=== PATIENT | female | born 1965 | race African-American/Black ===

== ENCOUNTER 2016-05-19 17:45 | Emergency (ER) | payer OTHER ==
[2016-05-19 18:02] VITALS: BP 132/79; PULSE 103; TEMP 98.6; BMI 34.1
[2016-05-19] MEDS ORDERED: ALBUTEROL SO4 2.5/IPRATROPIUM 0.5 INH SOL 3 ML VIAL.NEB. NEB ONE ×2 (19:16→19:17)
[2016-05-19] MEDS ORDERED: ALBUTEROL SO4 0.083% IH SOL 2.5 MG/3 ML VIAL.NEB. NEB ONE ×2 (20:22→20:38)
--- NOTE | 2016-05-19 22:06 | PDOC ---
History of Present Illness - General Chief Complaint: Asthma Stated Complaint: SHORTNESS OF BREATH Time Seen by Provider: 05/19/16 18:35 History Source: Patient Exam Limitations: No Limitations - History of Present Illness Initial Comments: 05/19/16 22:03 chest tightness and wheezing x 3 days; no fever/ chills Timing/Duration: reports: just prior to arrival Severity: reports: mild Possible Cause: Yes: no prior episodes Past History - Past Medical History Allergies/Adverse Reactions: Allergies Allergy/AdvReac Type Severity Reaction Status Date / Time No Known Allergies Allergy Verified 05/19/16 18:02 Home Medications: Ambulatory Orders Amlodipine Besylate [Norvasc -] 1 each PO DAILY 05/28/12 Albuterol Sulfate Inhaler - [Ventolin HFA Inhaler -] 2 inh PO QID 02/04/15 Liraglutide [Victoza -] 1.2 mg SQ DAILY@0700 02/04/15 Loratadine [Claritin -] 10 mg PO DAILY 02/04/15 Metformin HCl 500 mg PO BID 02/04/15 Mometasone Furoate [Asmanex 220Mcg -] 1 inh IH HS 02/04/15 Montelukast Na [Singulair -] 10 mg PO DAILY 02/04/15 Omeprazole Magnesium [Prilosec (OTC)] 20 mg PO DAILY 02/04/15 Oxycodone HCl 15 mg PO DAILY 02/04/15 Oxycodone HCl [Oxycontin] 10 mg PO DAILY 02/04/15 Ranitidine [Zantac -] 150 mg PO HS 02/04/15 Repaglinide [Prandin -] 2 mg PO TID 02/04/15 Telmisartan/Hydrochlorothiazid [Micardis Hct 80-25 mg Tablet] 1 each PO DAILY Zolpidem Tartrate [Ambien] 10 mg PO HS 02/04/15 Ibuprofen [Motrin -] 800 mg PO Q6H #30 tablet 08/18/15 Asthma: Yes Diabetes: Yes (TYPE 2) GI Disorders: Yes (GERD) HTN: Yes Hypercholesterolemia: Yes Liver Disease: Yes (FATTY LIVER) - Immunization History Immunization Up to Date: Yes - Psycho/Social/Smoking Cessation Hx Anxiety: No Suicidal Ideation: No Smoking Status: No Smoking History: Never smoked Have you smoked in the past 12 months: No Number of Cigarettes Smoked Daily: 0 Hx Alcohol Use: No Drug/Substance Use Hx: No Substance Use Type: None Review of Systems - Review of Systems Constitutional: No: Chills, Fever, Malaise HEENTM: Yes: Nose Congestion Respiratory: Yes: Cough, Wheezing. No: SOB with Exertion, Stridor Cardiac (ROS): Yes: Chest Tightness. No: Symptoms Reported, Chest Pain ABD/GI: No: Symptoms Reported *Physical Exam - Vital Signs Last Vital Signs Temp Pulse Resp BP Pulse Ox 98.6 F 103 H 20 132/79 100 05/19/16 17:59 05/19/16 17:59 05/19/16 17:59 05/19/16 17:59 05/19/16 17:59 - Physical Exam General Appearance: Yes: Appropriately Dressed. No: Apparent Distress HEENT: positive: TMs Normal, Pharynx Normal Neck: positive: Supple. negative: Tender, Rigid, Lymphadenopathy (R), Lymphadenopathy (L) Respiratory/Chest: positive: Wheezing. negative: Respiratory Distress, Accessory Muscle Use Cardiovascular: positive: Regular Rhythm, Regular Rate. negative: Murmur ED Treatment Course - ADDITIONAL ORDERS Additional order review: Laboratory Results 05/19/16 19:48 POC Glucometer [id number] 05/19/16 19:48 POC Glucometer [id number] - RADIOLOGY Radiology Studies Ordered: Category Date Time Status CHEST PA & LAT [RAD] Stat Radiology 05/19/16 20:23 Completed - Medications Given in the ED: ED Medications Discontinued Medications Generic Name Dose Route Start Last Admin Trade Name Freq PRN Reason Stop Dose Admin Albuterol Sulfate 1 amp 05/19/16 20:22 05/19/16 20:39 Ventolin 0.083% Nebulizer Soln - NEB 05/19/16 20:23 1 amp ONCE ONE Administration Albuterol/Ipratropium 1 amp 05/19/16 19:16 05/19/16 19:18 Duoneb - NEB 05/19/16 19:17 1 amp ONCE ONE Administration Medical Decision Making - Medical Decision Making 05/19/16 22:04 feeling much better post 2 albuterols; ekg notes sinus tack; reviewed with ED attn *DC/Admit/Observation/Transfer Diagnosis at time of Disposition: Exacerbation of asthma - Discharge Dispostion Disposition: HOME Condition at time of disposition: Stable Admit: No - Post Discharge Activity Work/School Note: Back to Work
[2016-05-19] MEDS ORDERED: predniSONE 20 MG TABLET (UD) ONE (22:11)
--- NOTE | 2016-05-20 12:23 | EKG ---
Test Reason : Blood Pressure : / mmHG Vent. Rate : 101 BPM Atrial Rate : 101 BPM P-R Int : 134 ms QRS Dur : 088 ms QT Int : 356 ms P-R-T Axes : 045 009 080 degrees QTc Int : 461 ms SINUS TACHYCARDIA WITH OCCASIONAL PREMATURE VENTRICULAR COMPLEXES NONSPECIFIC T WAVE ABNORMALITY ABNORMAL ECG Confirmed by ANTONIO TRISTAN, KENDRICK ([id number]) on 05/20/2016 12:23:34 PM Referred By: DEVIN Confirmed By:KENDRICK ALVAREZ MD
== END 2016-05-19 22:10 | disposition home or self-care (01) ==
LOC: JERFT 17:45
PROC: 3E0F7GC Introduction of Other Therapeutic Substance into Respiratory Tract, Via Natural or Artificial Opening (ICD-10-PCS; principal; 2016-05-19)
DX: J45.901 Unspecified asthma with (acute) exacerbation (principal); D64.9 Anemia, unspecified; E11.9 Type 2 diabetes mellitus without complications; K21.9 Gastro-esophageal reflux disease without esophagitis; I10 Essential (primary) hypertension; E78.00 Pure hypercholesterolemia, unspecified
CPT/HCPCS: 71020-TC; 93005; 93010; 94640; 99281-25

== ENCOUNTER 2018-11-27 13:32 | Emergency (ER) | payer OTHER ==
--- NOTE | 2018-11-27 13:35 | PDOC ---
Rapid Medical Evaluation Time Seen by Provider: 11/27/18 13:34 Medical Evaluation: Allergies Allergy/AdvReac Type Severity Reaction Status Date / Time No Known Allergies Allergy Verified 11/27/18 13:34 11/27/18 13:34 I have performed a brief in-person evaluation of this patient. The patient presents with a chief complaint of: left foot pain s/p accidental kick of [place] pallet Pertinent physical exam findings: No focal findings I have ordered the following: xray, ice The patient will proceed to the ED for further evaluation. Discharge Disposition - Diagnosis Foot pain, left - Referrals - Patient Instructions - Post Discharge Activity
[2018-11-27 13:37] VITALS: BP 148/74; PULSE 88; TEMP 98.4; BMI 35.2
--- NOTE | 2018-11-27 14:34 | PDOC ---
History of Present Illness - General Chief Complaint: Bone Injury Stated Complaint: LT FOOT PAIN Time Seen by Provider: 11/27/18 13:34 - History of Present Illness Initial Comments: 11/27/18 14:31 53-year-old female presents for evaluation of left fifth toe pain after hitting her toe into a pallet at a supermarket last night Past History - Past Medical History Allergies/Adverse Reactions: Allergies Allergy/AdvReac Type Severity Reaction Status Date / Time No Known Allergies Allergy Verified 11/27/18 13:34 Home Medications: Ambulatory Orders Albuterol Sulfate Inhaler - [Ventolin HFA Inhaler -] 2 inh PO QID 02/04/15 Loratadine [Claritin -] 10 mg PO DAILY 02/04/15 Mometasone Furoate [Asmanex 220Mcg -] 1 inh IH HS 02/04/15 Montelukast Na [Singulair -] 10 mg PO DAILY 02/04/15 Zolpidem Tartrate [Ambien] 10 mg PO HS 02/04/15 Metaxalone [Skelaxin] 800 mg PO DAILY 08/14/17 Aspirin Coated [Ecotrin -] 81 mg PO DAILY tablet.ec 08/19/17 Atorvastatin Ca [Lipitor] 80 mg PO HS tablet 08/19/17 Carvedilol [Coreg -] 6.25 mg PO BID tablet 08/19/17 Heparin - 5,000 unit SQ TID vial 08/19/17 Insulin Sliding Scale [Novolog Vial Sliding Scale -] 1 vial SQ ACHS units 08/19 Insulin Sliding Scale [Novolog Vial Sliding Scale -] 1 vial SQ ACHS units 08/19 Spironolactone [Aldactone -] 25 mg PO DAILY tablet 08/19/17 Valsartan [Diovan] 320 mg PO DAILY tablet 08/19/17 Asthma: Yes COPD: No Diabetes: Yes (TYPE 2) GI Disorders: Yes (GERD) HTN: Yes Hypercholesterolemia: Yes Liver Disease: Yes (FATTY LIVER) - Immunization History Immunization Up to Date: Yes - Suicide/Smoking/Psychosocial Hx Smoking Status: No Smoking History: Never smoked Have you smoked in the past 12 months: No Number of Cigarettes Smoked Daily: 0 Hx Alcohol Use: No Drug/Substance Use Hx: No Substance Use Type: None Review of Systems - Review of Systems Musculoskeletal: Yes: Joint Pain *Physical Exam - Vital Signs Last Vital Signs Temp Pulse Resp BP Pulse Ox 98.4 F 88 18 148/74 100 11/27/18 13:35 11/27/18 13:35 11/27/18 13:35 11/27/18 13:35 11/27/18 13:35 - Physical Exam Comments: 11/27/18 14:31 Left fifth toe skin color and temperature are normal range of motion is slightly limited no gross sensory motor deficits mild swelling at the tip of the toe. Neurovascularly intact. Medical Decision Making - Medical Decision Making 11/27/18 14:32 No displaced fracture left fifth toe weight-bear as tolerated with [place] shoe follow-up with orthopedics *DC/Admit/Observation/Transfer Diagnosis at time of Disposition: Foot pain, left, Contusion of toe of left foot - Discharge Dispostion Disposition: HOME Condition at time of disposition: Stable Decision to Admit order: No - Referrals Referrals: Lizz Billingsley MD [Primary Care Provider] - Jeremiah Perez MD [Staff Physician] - - Patient Instructions Printed Discharge Instructions: DI for Toe Sprain Additional Instructions: He may weight-bear as tolerated with [place] shoe follow-up with orthopedics in 1-2 days without fail for further evaluation and treatment options and return to the emergency room should symptoms worsen - Post Discharge Activity
== END 2018-11-27 14:42 | disposition home or self-care (01) ==
LOC: JERFT 13:32
DX: M79.675 Pain in left toe(s) (principal); S90.122A Contusion of left lesser toe(s) without damage to nail, initial encounter; W22.8XXA Striking against or struck by other objects, initial encounter; Y93.89 Activity, other specified; Y92.512 Supermarket, store or market as the place of occurrence of the external cause; K21.9 Gastro-esophageal reflux disease without esophagitis; K76.0 Fatty (change of) liver, not elsewhere classified; E78.00 Pure hypercholesterolemia, unspecified; I10 Essential (primary) hypertension; E11.9 Type 2 diabetes mellitus without complications; J45.909 Unspecified asthma, uncomplicated
CPT/HCPCS: 73630-TC-LT; 99282-25

== ENCOUNTER 2018-12-23 18:56 | Emergency (ER) | payer OTHER ==
[2018-12-23 19:35] VITALS: BP 153/85; PULSE 97; TEMP 98.5; BMI 35.4
[2018-12-23] MEDS ORDERED: ALBUTEROL SO4 2.5/IPRATROPIUM 0.5 INH SOL 3 ML VIAL.NEB. NEB ONE ×2 (19:59→20:29)
[2018-12-23] MEDS ORDERED: predniSONE 20 MG TABLET (UD) PO ONE (20:05)
[2018-12-23] MEDS ORDERED: predniSONE 20 MG TABLET (UD) ONE (20:09)
[2018-12-23] MEDS: ALBUTEROL SO4 2.5/IPRATROPIUM 0.5 INH SOL 3 ML VIAL.NEB. NEB SCH ×3 (20:14→21:06)
--- NOTE | 2018-12-23 20:46 | PDOC ---
History of Present Illness - General History Source: Patient Exam Limitations: No Limitations <Gavi Waller - Last Filed: 12/23/18 21:35> <Shravan Castro - Last Filed: 12/24/18 02:03> - General Chief Complaint: Asthma Stated Complaint: ASTHMA Time Seen by Provider: 12/23/18 19:54 Past History - Past Medical History Asthma: Yes COPD: No Diabetes: Yes (TYPE 2) GI Disorders: Yes (GERD) HTN: Yes Hypercholesterolemia: Yes Liver Disease: Yes (FATTY LIVER) - Surgical History Cardiac Surgery: Yes (stent x 1) - Immunization History Immunization Up to Date: Yes - Suicide/Smoking/Psychosocial Hx Smoking Status: No Smoking History: Unknown if ever smoked Have you smoked in the past 12 months: No Number of Cigarettes Smoked Daily: 0 Information on smoking cessation initiated: No Hx Alcohol Use: No Drug/Substance Use Hx: No Substance Use Type: None <Gavi Waller - Last Filed: 12/23/18 21:35> <Shravan Castro - Last Filed: 12/24/18 02:03> - Past Medical History Allergies/Adverse Reactions: Allergies Allergy/AdvReac Type Severity Reaction Status Date / Time No Known Allergies Allergy Verified 12/23/18 19:18 Home Medications: Ambulatory Orders Albuterol Sulfate Inhaler - [Ventolin HFA Inhaler -] 2 inh PO QID 02/04/15 Mometasone Furoate [Asmanex 220Mcg -] 1 inh IH HS 02/04/15 Montelukast Na [Singulair -] 10 mg PO DAILY 02/04/15 Aspirin Coated [Ecotrin -] 81 mg PO DAILY tablet.ec 08/19/17 Atorvastatin Ca [Lipitor] 80 mg PO HS tablet 08/19/17 Carvedilol [Coreg -] 6.25 mg PO BID tablet 08/19/17 Spironolactone [Aldactone -] 25 mg PO DAILY tablet 08/19/17 Valsartan [Diovan] 320 mg PO DAILY tablet 08/19/17 predniSONE [Deltasone -] 40 mg PO DAILY #8 tablet 12/23/18 *Physical Exam - Vital Signs Last Vital Signs Temp Pulse Resp BP Pulse Ox 98.5 F 97 H 16 153/85 98 12/23/18 19:18 12/23/18 19:18 12/23/18 19:18 12/23/18 19:18 12/23/18 19:18 - Physical Exam General Appearance: No: Apparent Distress Respiratory/Chest: positive: Lungs Clear, Normal Breath Sounds. negative: Respiratory Distress Cardiovascular: positive: Regular Rhythm, Regular Rate, S1, S2. negative: Murmur Gastrointestinal/Abdominal: positive: Normal Bowel Sounds, Soft. negative: Tender, Distended, Guarding, Rebound Extremity: negative: Pedal Edema, Swelling, Calf Tenderness Neurologic: positive: Alert, Normal Mood/Affect <Gavi Waller - Last Filed: 12/23/18 21:35> - Vital Signs Last Vital Signs Temp Pulse Resp BP Pulse Ox 98.5 F 97 H 16 153/85 98 12/23/18 19:18 12/23/18 19:18 12/23/18 19:18 12/23/18 19:18 12/23/18 19:18 <Shravan Castro - Last Filed: 12/24/18 02:03> ED Treatment Course - LABORATORY CBC & Chemistry Diagram: 12/23/18 20:50 12/23/18 20:50 - RADIOLOGY Radiology Studies Ordered: Category Date Time Status CHEST PA & LAT [RAD] Stat Radiology 12/23/18 20:33 Ordered - Medications Given in the ED: ED Medications Discontinued Medications Generic Name Dose Route Start Last Admin Trade Name Freq PRN Reason Stop Dose Admin Prednisone 60 mg 12/23/18 20:05 12/23/18 20:14 Deltasone - PO 12/23/18 20:06 60 mg ONCE ONE Administration <Gavi Waller - Last Filed: 12/23/18 21:35> - LABORATORY CBC & Chemistry Diagram: 12/23/18 20:50 12/23/18 20:50 - ADDITIONAL ORDERS Additional order review: Laboratory Results 12/23/18 12/23/18 20:50 20:50 Sodium 140 Potassium 4.2 Chloride 104 Carbon Dioxide 29 Anion Gap 8 BUN 19.1 H Creatinine 1.3 Est GFR (CKD-EPI)AfAm 54.24 Est GFR (CKD-EPI)NonAf 46.80 Random Glucose 190 H Calcium 9.7 Troponin I < 0.02 12/23/18 20:50 RBC 4.65 MCV 72.5 L MCHC 32.3 RDW 14.9 MPV 7.3 L Neutrophils % 50.5 Lymphocytes % 34.1 Monocytes % 7.7 Eosinophils % 7.2 H Basophils % 0.5 - Medications Given in the ED: ED Medications Discontinued Medications Generic Name Dose Route Start Last Admin Trade Name Tk PRN Reason Stop Dose Admin Albuterol/Ipratropium 1 amp 12/23/18 20:15 12/23/18 21:06 Duoneb - NEB 12/23/18 20:46 1 amp Q15M WILFRID Administration Prednisone 60 mg 12/23/18 20:05 12/23/18 20:14 Deltasone - PO 12/23/18 20:06 60 mg ONCE ONE Administration <Shravan Castro - Last Filed: 12/24/18 02:03> Medical Decision Making - Medical Decision Making 53 y/o F hx of HTN, DM, CAD s/p PCI, asthma (never intubated, never hospitalized ) presents with SOB and wheezing x 2 weeks, not improving despite use of her asthma meds. Also with occasional dry cough. States symptoms feel just like her asthma; did not come sooner for evaluation as steroids tend to increase her sugar. Has not seen her PCP yet regarding sxs. Is currently using Albuterol inhaler and nebulizer, Mometasone and singulair. Denies fever, URI sxs, chest pain, abd pain, vomiting, calf pain, leg swelling, recent travel. Likely asthma exacerbation though lungs currently clear Consider ACS given risk factors EKG: NSR at 92 bpm, T wave flattening III, aVF Unlikely PE; Patient meets 0 of the Wells criteria Plan: Labs, CXR, nebs, steroids, reassess 12/23/18 20:43 Trop negative Patient feeling better on reassessment Lungs CTA B/L Stable for dc 12/23/18 21:34 <Gavi Waller - Last Filed: 12/23/18 21:35> - Medical Decision Making 12/24/18 01:30 <Shravan Castro - Last Filed: 12/24/18 02:03> *DC/Admit/Observation/Transfer - Discharge Dispostion Decision to Admit order: No <Gavi Waller - Last Filed: 12/23/18 21:35> <Shravan Castro - Last Filed: 12/24/18 02:03> Diagnosis at time of Disposition: Asthma exacerbation Qualifiers: Asthma severity: mild Asthma persistence: unspecified Qualified Code(s): J45.901 - Unspecified asthma with (acute) exacerbation - Discharge Dispostion Disposition: HOME Condition at time of disposition: Stable - Prescriptions Prescriptions: predniSONE [Deltasone -] 40 mg PO DAILY #8 tablet - Patient Instructions Printed Discharge Instructions: Asthma -- Adult Additional Instructions: Thank you for choosing [facility]. It was a pleasure taking care of you. Continue your asthma medications as prescribed You were started on steroids. This will increase your sugar so please monitor this carefully. Follow-up with your doctor in 2 days Return to the Emergency Department if your symptoms worsen or persist, you have fever, shortness of breath, chest pain, severe abdominal pain, vomiting, calf pain, swelling of legs or other concerning symptoms.
[2018-12-23 21:10] LABS: BASO % 0.5 % (0-2.0); EOS % 7.2 % (0-4.5); HEMATOCRIT 33.7 % (32.4-45.2); HEMOGLOBIN 10.9 GM/dL (10.7-15.3); LYMPH % 34.1 % (8-40); MCH 23.4 pg (25.7-33.7); MCHC 32.3 g/dl (32.0-36.0); MEAN CELL VOLUME 72.5 fl (80-96); MEAN PLT VOLUME 7.3 fl (7.5-11.1); MONO % 7.7 % (3.8-10.2); NEUT % 50.5 % (42.8-82.8); PLATELET COUNT 357 K/MM3 (134-434); RBC 4.65 M/mm3 (3.60-5.2); RDW 14.9 % (11.6-15.6); WHITE BLOOD COUNT 12.4 K/mm3 (4.0-10.0)
[2018-12-23 21:16] LABS: BLOOD UREA NITROGEN 19.1 mg/dL (7-18); CALCIUM 9.7 mg/dL (8.5-10.1); CREATININE 1.3 mg/dL (0.55-1.3); POTASSIUM 4.2 mmol/L (3.5-5.1)
--- NOTE | 2018-12-28 11:39 | EKG ---
Test Reason : Blood Pressure : / mmHG Vent. Rate : 092 BPM Atrial Rate : 092 BPM P-R Int : 130 ms QRS Dur : 074 ms QT Int : 356 ms P-R-T Axes : 031 019 019 degrees QTc Int : 440 ms POOR DATA QUALITY, INTERPRETATION MAY BE ADVERSELY AFFECTED NORMAL SINUS RHYTHM NORMAL ECG WHEN COMPARED WITH ECG OF 15-AUG-2017 02:04, T WAVE INVERSION NO LONGER EVIDENT IN LATERAL LEADS Confirmed by ANTONIO TRISTAN, KENDRICK ([id number]) on 12/28/2018 11:38:52 AM Referred By: Confirmed By:KENDRICK ALVAREZ MD
== END 2018-12-23 21:46 | disposition home or self-care (01) ==
LOC: JER 18:56
PROC: 3E0F7GC Introduction of Other Therapeutic Substance into Respiratory Tract, Via Natural or Artificial Opening (ICD-10-PCS; principal; 2018-12-23)
DX: J45.901 Unspecified asthma with (acute) exacerbation (principal); I10 Essential (primary) hypertension; E78.00 Pure hypercholesterolemia, unspecified; E11.9 Type 2 diabetes mellitus without complications; K21.9 Gastro-esophageal reflux disease without esophagitis; K76.0 Fatty (change of) liver, not elsewhere classified; I25.10 Atherosclerotic heart disease of native coronary artery without angina pectoris; Z95.5 Presence of coronary angioplasty implant and graft
CPT/HCPCS: 36415; 71046-TC-FY; 80048; 84484; 84702; 85025; 93005; 93010; 94640; 99283-25

== ENCOUNTER 2022-10-13 12:05 | Emergency (ER) | payer OTHER ==
[2022-10-13 12:11] VITALS: BP 122/80; PULSE 91; RESP 18; TEMP 98.2; BMI 31.1
[2022-10-13] MEDS ORDERED: KETOROLAC TROMETHAMINE 30 MG/1 ML VIAL IM ONE (13:11)
[2022-10-13] MEDS ORDERED: LIDOCAINE 5% TOPICAL PATCH TP ONE (13:11)
[2022-10-13] MEDS ORDERED: diazePAM 5 MG TABLET PO ONE (13:11)
[2022-10-13] MEDS ORDERED: diazePAM 5 MG TABLET ONE (13:27)
[2022-10-13] MEDS ORDERED: KETOROLAC TROMETHAMINE 30 MG/1 ML VIAL ONE ×2 (13:27→13:28)
[2022-10-13] MEDS ORDERED: LIDOCAINE 5% TOPICAL PATCH ONE (13:27)
[2022-10-13] MEDS ORDERED: LIDOCAINE PATCH REMOVAL MC SCH (22:00)
== END 2022-10-13 17:13 | disposition home or self-care (01) ==
LOC: JER 12:05
PROC: 3E0233Z Introduction of Anti-inflammatory into Muscle, Percutaneous Approach (ICD-10-PCS; principal; 2022-10-13)
DX: M54.2 Cervicalgia (principal); M54.50 Low back pain, unspecified; R51.9 Headache, unspecified; R11.2 Nausea with vomiting, unspecified; M62.838 Other muscle spasm; V49.40XA Driver injured in collision with unspecified motor vehicles in traffic accident, initial encounter; Y93.I9 Activity, other involving external motion
CPT/HCPCS: 70450-TC; 72125-TC; 99284-25